=== PATIENT | female | born 1980 | race Caucasian/White ===

== ENCOUNTER → 2020-10-13 | Outpatient (CLI) | payer OTHER ==
[2020-10-13 09:36] LABS: MICROSCOPIC NOT IND
[2020-10-13 09:49] LABS: BASOPHILS % (AUTO) 1 % (0-1); EOSINOPHILS % (AUTO) 8 % (1-7); LYMPHOCYTES % (AUTO) 32 % (22-44); MEAN CORPUSCULAR HEMOGLOBIN 29.7 pg (27.0-34.8); MEAN PLATELET VOLUME 7.1 fL (7.4-10.4); MONOCYTES % (AUTO) 5 % (2-9); NEUTROPHILS % (AUTO) 55 % (42-75); PLATELET COUNT 242 x10^3/uL (130-400)
[2020-10-13 09:55] LABS: ALANINE AMINOTRANSFERASE 18 U/L (12-78); ALBUMIN 3.7 g/dL (3.4-5.0); ANION GAP 9 mmol/L (5-15); CALCIUM 8.5 mg/dL (8.5-10.1); CHLORIDE 107 mmol/L (98-107); CREATININE 0.69 mg/dL (0.55-1.02)
[2020-10-13 10:02] LABS: ALKALINE PHOSPHATASE 56 U/L (45-117); BILIRUBIN,TOTAL 0.4 mg/dL (0.2-1.0); TOTAL PROTEIN 7.1 g/dL (6.4-8.2)
== END | disposition home or self-care (01) ==
LOC: STAR 08:27
PROVIDERS: ATTEND Obstetrics & Gynecology Gynecology
DX: Z01.812 Encounter for preprocedural laboratory examination (principal); L04.8 Acute lymphadenitis of other sites; Z20.822 Contact with and (suspected) exposure to COVID-19
CPT/HCPCS: 36415; 80053; 81003; 84702; 85025; U0003; U0005

== ENCOUNTER 2020-10-19 10:32 | Day surgery (SDC) | payer OTHER ==
[~2020-10-19] VITALS: Ht 167.6 cm; Wt 69.0 kg
[2020-10-19] MEDS ORDERED: NO HOME MEDS PER PT (10:54)
[2020-10-19 10:55] VITALS: BP 96/60
[2020-10-19] MEDS ORDERED: CHLORHEXIDINE 15 ML UDC ONE (10:57)
[2020-10-19] MEDS ORDERED: LACTATED RINGERS 1,000 ML IV SCH (11:00)
[2020-10-19] MEDS ORDERED: CHLORHEXIDINE 15 ML UDC PO ONE (11:00)
[2020-10-19 11:04] LABS: HCG UR SG 1.027 (1.003-1.030)
[2020-10-19] MEDS ORDERED: FENTANYL PF 100 MCG/2ML ONE ×2 (11:59→13:53)
[2020-10-19] MEDS ORDERED: MIDAZOLAM 1 MG/ML, 2ML ONE (11:59)
[2020-10-19] MEDS ORDERED: ONDANSETRON 2MG/ML, 2ML ONE (12:10)
[2020-10-19] MEDS ORDERED: DEXAMETHASONE 4 MG/ML, 1ML ONE (12:10)
[2020-10-19] MEDS ORDERED: PROPOFOL 10 MG/ML, 20ML ONE (12:10)
[2020-10-19] MEDS ORDERED: CEFAZOLIN 1,000 MG ONE (12:10)
[2020-10-19] MEDS ORDERED: OXYcodone 5 MG/5 ML ORAL.SOL UDC PO PRN (12:30)
[2020-10-19] MEDS ORDERED: ONDANSETRON 2MG/ML, 2ML IVPush PRN (12:30)
[2020-10-19] MEDS ORDERED: HYDROcodone/APAP 7.5-325MG/15ML UDC PO PRN (12:30)
[2020-10-19] MEDS ORDERED: MEPERIDINE/PF 25MG/0.5ML IVPush PRN (12:30)
[2020-10-19] MEDS ORDERED: PROMETHAZINE 25 MG/ML, 1ML IVPush PRN (12:30)
[2020-10-19] MEDS ORDERED: FENTANYL PF 100 MCG/2ML IV PRN (12:30)
[2020-10-19] MEDS ORDERED: HYDROmorphone 1 MG/ML, 1ML INJ IVPush PRN (12:30)
[2020-10-19] MEDS ORDERED: HYDROcodone/APAP 7.5-325MG/15ML UDC ONE (13:53)
[2020-10-19] MEDS ORDERED: KETOROLAC 30 MG/1 ML IVPush PRN (15:00)
== END 2020-10-19 15:27 | disposition home or self-care (01) ==
LOC: OUT 10:32
PROVIDERS: ATTEND Obstetrics & Gynecology Gynecology
DX: N75.1 Abscess of Bartholin's gland (principal); N75.8 Other diseases of Bartholin's gland; Z79.899 Other long term (current) drug therapy
CPT/HCPCS: 36415; 56740; 81025; 86850; 86900; 88304; J0690; J1100; J1885; J2250; J2405; J2704; J3010; J7120